=== PATIENT | male | born 1960 | race Caucasian/White ===

== ENCOUNTER 2024-09-16 16:52 | Inpatient (IN) | payer BC, SELFPAY ==
[2024-09-16] VITALS (10 sets, daily range): BP systolic 103–135; BP diastolic 52–74; BMI 29.7; BMI 29.4
[2024-09-16 14:30] LABS: % Basophils 0.2 % (0-2); % Eosinophils 0.5 % (0-6); % Immature Granulocytes 0.2 % (0-0.5); % Lymphocytes 10.3 % (20.5-51.1); % Monocytes 10.1 % (1.7-9.3); % Neutrophils 78.7 % (42.2-75.2); Absolute Lymphocytes 0.6 10^3/uL (1.2-3.4); Absolute Monocytes 0.6 10^3/uL (0.1-0.6); Absolute Neutrophils 4.5 10^3/uL (1.4-6.5); Hematocrit 23.8 % (39.0-52.0); Hemoglobin 7.4 g/dL (13.0-18.0); Mean Corp Hgb Conc. 31.1 g/dL (33.0-37.0); Mean Corpuscular Hgb 26.8 pg (27.0-31.0); Mean Corpuscular Volume 86.2 fL (80.0-94.0); Nucleated Red Blood Cells % 0 % (-); Platelet Count 232 10^3/uL (130-400); Red Blood Cell Count 2.76 10^6/uL (4.70-6.10); Red Cell Dist. Width 14.2 % (11.5-14.5); White Blood Cell Count 5.7 10^3/uL (4.8-10.8)
[2024-09-16 14:42] LABS: ALT (SGPT) 22 U/L (0-50); AST (SGOT) 20 U/L (17-59); Albumin 3.3 g/dl (3.5-5.0); Alkaline Phosphatase 51 U/L (38-126); Blood Urea Nitrogen 14 mg/dl (9-20); Calcium 8.5 mg/dl (8.4-10.2); Carbon Dioxide 25 mmol/L (22-30); Chloride 106 mmol/L (98-107); Glucose 129 mg/dl (70-99); Lipase 22 U/L (23-300); Sodium 137 mmol/L (135-145); Total Bilirubin 0.6 mg/dl (0.2-1.3); Total Protein 5.8 g/dl (6.3-8.2); eGFR > 60.00
--- NOTE | 2024-09-16 15:10 | ED.GENMED ---
History of Present Illness
General
Chief Complaint: Abdominal Symptoms
Source: patient
Exam Limitations: none
Time Seen by Provider: 09/16/24 14:50
History of Present Illness
History of Present Illness:
64yoM with a history of recently diagnosed ulcerative colitis and hyperlipidemia presenting with his daughter for evaluation of diarrhea and hematochezia. Patient had a colonoscopy 2 weeks ago at [facility] with Dr. Coughlin. Biopsies
reportedly came back consistent with ulcerative colitis. He is currently taking oral and rectal mesalamine although has not taken his rectal mesalamine in the last 2 days due to rectal discomfort. He reports frequent diarrhea, bloody and mucousy
stools, bloating, gas, and discomfort in his left lower abdomen. He had some chills last night but denies any fevers. No previous abdominal surgeries.
Past History
Past History
ED Past Medical History: None
ED Past Surgical History: None
Social History
Tobacco: Non-smoker
Phy Exam
General Physical Exam
General Presentation: well appearing and no apparent distress
General age: appears stated age
General Skin: warm, dry and pale
General Habitus: normal
General Mental: alert
ENT Exam
ENT Exam: normocephalic
Pulmonary Exam
Pulmonary Exam: no respiratory distress
Gastrointestinal Exam
Gastrointestinal Exam: soft, non distended and other (Mild tenderness in LLQ. Abdomen soft, non-distended. No rebound or guarding. )
Rectal Exam: hemorrhoids and other (External hemorrhoids noted. Stool bloody.)
Stool: red
Neurological Exam
Neurological Exam: alert
[place] Coma Scale
Eye Opening: Spontaneous
Verbal Response: Oriented
Motor Response: Obeys Commands
GCS Total Score: 15
Skin Exam
Skin Exam: normal color and warm/dry
Psychiatric Exam
Psychiatric Exam: normal mood/affect
Course
Orders/Labs/Results
Orders:
Orders
09/16/24 14:17
C-Reactive Protein Urgent
Comment: ADD ON
Complete Blood Count/With Diff Urgent
Comprehensive Metabolic Panel Urgent
Erythrocyte Sed Rate Urgent
Comment: ADD ON
Lipase Urgent
09/16/24 15:00
Add On- LAB Urgent
Tests Added?: ESR, CRP
CT Abd/pelvis W Iv Cont Urgent
Comment:
Reason For Exam: bloody diarrhea, LLQ pain, hx of UC
NPO
Allow oral meds: Yes
Allow clear liquids: Sips of Clears
09/16/24 15:18
Type+Screen Urgent
PT/INR [Prothrombin Time] Urgent
PTT Urgent
09/16/24 16:32
Acetaminophen [Tylenol] 650 mg PO NOW STA
09/16/24 16:38
Admit/Transfer Patient As Directed
Co-Sign Provider:
Level of Care: Inpatient admission
Assign to:: Medical/Surgical
Physician / Group: kiki
Diagnosis: ulcerative colitis flare
Reason for Hospitalization: ulcerative colitis flare
Expected length of stay greater than two midnights?: Yes
ELOS- Estimated Length of Stay in days: 2
I certify the patient meets the requirements for IP care: Yes
PRN Pain Medication Management As Directed
May give lesser potent ordered pain med per pt: Yes
preference::
Protocol:: Medication orders for pain may be administered in a
manner that supports deferring to patient preference
when the pt is:
- Requesting an ordered lesser potent pain medication.
Least to most potent pain medications are defined
as: acetaminophen < NSAID < tramadol < opioids
(morphine, oxycodone, hydromorphone).
- Requesting a lesser dose of the same medication IF
ORDERED.
- Requesting a less intrusive route of administration
if both routes are prescribed by the provider (PO <
IV).
09/16/24 16:39
Code Status As Directed
Resuscitation Status: Full Code
09/16/24 16:50
Stool Culture Urgent
REYNALDO Source: Feces/Stool
Specimen Description:
Date Specimen was Collected: 09/16/24
Time Specimen was Collected: 16:45
09/16/24 16:51
CDIFF [C difficile Antigen & Toxins] Urgent
REYNALDO Source: Feces/Stool
Specimen Description:
Date Specimen was Collected: 09/16/24
Time Specimen was Collected: 16:45
09/16/24 17:00
ABO2 Urgent
BBK Wristband Number:
Associate notified that ABO2 has been ordered: [id number]
Date: 09/16/24
Time: 15:32
Joggle Press Operator ID: [id number]
09/16/24 17:24
Acetaminophen [Tylenol] 650 mg PO Q4HPRN PRN
09/16/24 17:24
GASTROINTESTINAL CONSULT Routine
Consulting Provider: Esequiel Brown
Was physician already notified: Yes
Activity As Directed
Activity Level: As Tolerated
Pneumatic Compression Sleeves As Directed
Type: Knee high
Vital Signs As Directed
Frequency: Per unit guidelines
DX Deep Vein Thrombosis Video Routine
09/16/24 20:00
B12 [Vitamin B12] Routine
Folate Routine
Iron Routine
TIBC [Total Iron Binding] Routine
09/17/24 06:00
Complete Blood Count/With Diff IN AM
Comprehensive Metabolic Panel IN AM
Abnormal Lab Results
09/16/24 09/16/24
14:17 15:18
RBC 2.76 L 10^6/uL
(4.70-6.10)
Hgb 7.4 L g/dL
(13.0-18.0)
Hct 23.8 L %
(39.0-52.0)
MCH 26.8 L pg
(27.0-31.0)
MCHC 31.1 L g/dL
(33.0-37.0)
Absolute Lymphs (auto) 0.6 L 10^3/uL
(1.2-3.4)
Neutrophils % 78.7 H %
(42.2-75.2)
Lymphocytes % 10.3 L %
(20.5-51.1)
Monocytes % 10.1 H %
(1.7-9.3)
ESR 41 H mm/hour
(0-20)
PT 14.8 H Sec
(11.4-14.6)
Glucose 129 H mg/dl
(70-99)
C-Reactive Protein 138.10 H mg/L
(0.0-10.00)
Total Protein 5.8 L g/dl
(6.3-8.2)
Albumin 3.3 L g/dl
(3.5-5.0)
Lipase 22 L U/L
(23-300)
Crossmatch IS Only See Detail
09/16/24 14:17
09/16/24 14:17
Vital Signs
Initial and Last Documented VS:
Initial Vital Signs
Temp Pulse Resp BP Pulse Ox
98.6 F 82 16 123/68 98
09/16/24 14:10 09/16/24 14:10 09/16/24 14:10 09/16/24 14:10 09/16/24 14:10
Last Documented Vital Signs
Temp Pulse Resp BP Pulse Ox
99.8 F 72 18 105/67 97
09/16/24 20:51 09/16/24 20:51 09/16/24 20:51 09/16/24 20:51 09/16/24 15:00
MDM/Problems Addressed
Differential Diagnosis Includes:
64yoM here with bloody stool, diarrhea, rectal pain, bloating x 2 days. Recent diagnosis of UC. VSS. He is non-toxic appearing. Stool is bloody on rectal exam. Differential diagnosis includes but is not limited to: ulcerative colitis flare,
diverticulitis, colitis
Initial ED plan: Labs obtained in triage. Hemoglobin is 7.4, unclear baseline. Will check ESR/CRP, type and screen, stool studies, and CT abdomen.
*Critical Care Note
Total Time (30-74mins, 75-104mins- exclusive of procedures): Not Applicable
Update Note
Update Note:
ESR 41 and CRP 138. Discussed case with social media sr strategy manager Dr. Brown. GI recommending Solumedrol 20mg IV Q8 if C.diff testing and CT are negative. Patient admitted for further management.
ED Attending Note
-
Portions of this chart may have been created with voice recognition software.� Occasional wrong word or��sound alike� substitutions may have occurred due to the inherent limitations of voice recognition software.
Discharge Plan
Departure
Patient Disposition: Admit
Date of Disposition: 09/16/24
Time of Disposition: 16:27
Presentation/result/management discussed w/ accepting MD/DO: Hospitalist
Discharge Problem:
Exacerbation of ulcerative colitis, Anemia
Interventions
Interventions:
*Risk Screen - Suicide Last Done: 09/16/24 14:10
*General Assessment Last Done: 09/16/24 14:52
*Neglect/Abuse Screening Last Done: 09/16/24 14:10
*ED- Fall Risk Assessment Last Done: 09/16/24 14:52
*ED COVID-19 Vaccine History Last Done: 09/16/24 14:52
*Nursing Disposition Last Done: 09/16/24 19:00
HZ-Herqqt-Lteloezyyb Assessment Last Done: 09/16/24 14:52
Discharge Date and Time
Discharge Date/Time: 09/16/24 19:00
[2024-09-16 15:32] LABS: Erythrocyte Sed Rate 41 mm/hour (0-20)
[2024-09-16 15:42] LABS: INR 1.12; PT 14.8 Sec (11.4-14.6)
[2024-09-16 15:43] LABS: APTT 33.3 Sec (23.4-35.0)
[2024-09-16] MEDS: TYLENOL 650 MG PO ×2 (16:56→20:36)
--- NOTE | 2024-09-16 17:02 | HPS.HSE ---
Addendum entered and electronically signed by Lea Bee MD 09/16/24 17:49:
Continued mesalamine.
Original Note:
Family Physician
-
Family Physician: Timmy Fields
Chief Complaint
-
rectal bleeding
History of Present Illness
64-year-old male past medical history of ulcerative colitis diagnosed 2 weeks ago, hyperlipidemia, hypertension, prediabetes, presenting with diarrhea and blood in the stool.
Patient has been having diarrhea for the past several months. He saw GI and had a colonoscopy 2 weeks ago at [facility] with Dr. Coughlin. Biopsy reports came back consistent with ulcerative colitis. He is currently taking oral and rectal
mesalamine but is not taking his rectal mesalamine in the past 2 days due to rectal discomfort.
Over the past week while on vacation he developed nausea, abdominal discomfort and bloating, chills, fatigue and diarrhea with rectal bleeding and mucus. No vomiting.
His father had pancreatic cancer.
He denies smoking or alcohol use.
Medical History
Past Medical History
Past Medical History: Reports Other (ulcerative colitis diagnosed 2 weeks ago, hyperlipidemia, hypertension, prediabetes,)
Past Surgical History: Reports Tonsilectomy ( Tonsillectomy, right total hip replacement, L4-5 discectomy,)
Social History
Tobacco: Non-smoker
Alcohol: None
Drug: None
Family History
Family History: Not pertinent
Allergies / Home Medications
Allergies reflects when Allergies were last updated in [facility].
Home Medications with original date entered in [facility]
Allergy/Medication List:
Allergies
Allergy/AdvReac Type Severity Reaction Status Date / Time
[facility] Verified 09/16/24 14:09
to Review
penicillin V Allergy Unknown Verified 09/16/24 14:09
[facility] Verified 09/16/24 14:09
to Review
Home Medications
gabapentin 300 mg capsule 600 mg PO TID 02/12/16
ibuprofen 600 mg tablet 600 mg PO Q4H PRN pain 08/04/18
multivitamin (One Daily tablet) 1 ea PO DAILY 08/04/18
Review of Systems
-
History Source: Patient
A 12 point ROS was completed and negative except as noted: Yes
Constitutional: Reports No Symptoms
EENT: Reports No Symptoms
Respiratory: Reports No Symptoms
Cardiac: Reports No Symptoms
Abdomen/GI: Reports See HPI
: Reports No Symptoms
Musculoskeletal: Reports No Symptoms
Skin: Reports No Symptoms
Neurological: Reports No Symptoms
Endocrine: Reports No Symptoms
Hematologic/Lymphatic: Reports No Symptoms
Psych: Reports No Symptoms
Physical Exam
Vital Signs
Vital Signs
Temp Pulse Resp BP Pulse Ox
99.1 F 69 14 103/52 97
09/16/24 14:46 09/16/24 16:15 09/16/24 16:15 09/16/24 16:12 09/16/24 15:00
Physical Exam
General: Well Developed, Well Nourished and No Apparent Distress
HEENT: NormoCephalic, Moist mucous membranes and Atraumatic
Respiratory: Clear
Cardiac: S1/S2 and Regular Rhythm; No Murmur or Rub
GI: Soft, Non Tender, Non Distended and Normal Bowel Sounds; No Organomegaly
Rectal: Deferred by Provider
Musculoskeletal: No Clubbing, No Cyanosis and No Edema
Skin: No Rash
Neuro: Nonfocal/grossly intact
Laboratory Results
-
09/16/24 14:17
09/16/24 14:17
Laboratory Results
PT 14.8 Sec (11.4-14.6) H 09/16/24 15:18
INR 1.12 09/16/24 15:18
APTT 33.3 Sec (23.4-35.0) 09/16/24 15:18
Total Bilirubin 0.6 mg/dl (0.2-1.3) 09/16/24 14:17
AST 20 U/L (17-59) 09/16/24 14:17
ALT 22 U/L (0-50) 09/16/24 14:17
Alkaline Phosphatase 51 U/L (38-126) 09/16/24 14:17
Lipase 22 U/L (23-300) L 09/16/24 14:17
Data Reviewed
-
Lab Data: Labs Reviewed by me
Old Records: Reviewed
Impression/Plan
-
IMPRESSION:
PLAN:
# Ulcerative colitis flare
- CT scan abdomen pelvis pain
- Stool culture, C. difficile pending
-N.p.o.
-IV fluids
- If C. difficile negative and CT scan not suggestive of infection GI recommended to start Solu-Medrol 20 every 8
# Acute blood loss anemia
- Hemoglobin of 7.4, no recent for comparison
- Blood consent signed
-1 unit blood transfusion
- Check iron studies, B12 and folate
Hyperlipidemia
- Continue statin
Full code
DVT prophylaxis�SCDs
N.p.o.
[2024-09-16] MEDS: NSS IV (17:35)
--- NOTE | 2024-09-16 20:00 | PTCARENOTE ---
Pt brought to unit via stretcher from ED. Pt ambulated from stretcher to bed. A&Ox3. 1 Unit PRBCs transfusing. Pt oriented to unit. Care ongoing.
[2024-09-16] MEDS: NSS 1000 IV (20:57)
[2024-09-16] MEDS: PREPARATION H MAX STRENGTH PAIN RELIEF CREAM 1 APPLIC RECTAL (22:53)
[2024-09-16 23:02] LABS: Iron 21 ug/dl (49-181)
[2024-09-16 23:13] LABS: Percent Saturation 5 % (20-50); Total Iron Binding Capacity 388 ug/dl (261-462)
[2024-09-17 01:07] LABS: Folate 16.4 ng/ml (2.76-20)
[2024-09-17 02:08] LABS: Vitamin B12 332 pg/ml (239-931)
[2024-09-17 06:00] VITALS: BMI 29.4
--- NOTE | 2024-09-17 06:15 | CON.GI ---
Consultation
-
Date/Time Consultation Requested: 09/16/241723
Date/Time Consultation Performed: 09/17/24, 06
Requesting Provider: Dr. Lea Bee
Performing Provider: Dr. Esequiel Brown
Reason for Consultation: Bloody stools, Hx of UC, c/f UC Flare
Medical History
Chief Complaint / HPI
Chief Complaint: Rectal bleeding
History of Present Illness:
Mr. Alvarenga is a 64 y.o male with past medical history significant for HTN, HLD, prediabetes and recently diagnosed ulcerative colitis (two weeks ago, on 5-ASA) who presented to the ED with diarrhea and bloody stools. Found to have anemia with a
Hgb 7s and CT imaging revealing pancolitis concerning for UC flare. Gastroenterology has been consulted for further evaluation and management.
Patient states ongoing bloody stools over the past several months. Recently saw his Renewal Specialist, Dr. Buddy Amos (with [facility]), and underwent a colonoscopy about two weeks ago at [facility]. Unable to view prior report of this
but notes inflammation was found throughout his colon and biopsies were consistent with ulcerative colitis. He was started on oral mesalamine (4.8 grams q daily) along with rectal 5-ASA. Notes minimal relief with 5-ASA therapy and reports having 6-7
bloody stools along with rectal urgency, tenesmus, mucus along with ongoing bloody bowel movements. He was away traveling in [facility] and developed worsening abdominal discomfort along with nausea with worsening bloody stools. Once he got
back to the area he came to the ED for further evaluation. No other sick contacts, recent antibiotics or other new medications. No other fevers, chills, night sweats or other constitutional symptoms. Otherwise, he denies any prolonged steroids or
other biologic for his IBD given his new diagnosis. Denies any family hx of CRC or IBD, but notes his father had pancreatic cancer. Denies any other complications or EIM from his IBD.
In the ED, patient was afebrile and HD-stable. Labs notable for BUN 14 and Cell Installer 0.9. LFTs normal with albumin 3.3. Lipase 22. CBC revealed Hgb 7.4 (prev 13.2 back on 07/2018) with MCV 86.2 and WBC 5.7. Iron studies revealed low iron 21 and iron sat
5%. Borderline low vitamin B12 332 and folate 16.4. CRP elevated 138. CT Abd/pelvis 09/16 revealed moderate pancolitis without evidence of pneumatosis or perforation along with mild diverticulosis without diverticulitis without bowel obstruction.
Additionally, revealed avascular necrosis along superior margin of the L hip without apparent articular cortex collapse. Stool studies were ordered including C Diff and stool culture. Ordered 1 uPRBC and patient was kept NPO and given IVF and
admitted to medicine for further management.
Past Medical History
Past Medical History: Other (Ulcerative colitis diagnosed 2 weeks ago, hyperlipidemia, hypertension, prediabetes)
Past Surgical History: None
Social History
Tobacco: Non-Smoker
Alcohol: None
Drug: None
Family History
Family History: Reviewed & Not Pertinent
Allergies / Home Medications
Allergy/AdvReac Type Severity Reaction Status Date / Time
[facility] Verified 09/16/24 14:09
to Review
penicillin V Allergy Unknown Verified 09/16/24 14:09
[facility] Verified 09/16/24 14:09
to Review
�Medication �Instructions �Recorded
acetaminophen 500 mg tablet 500 mg PO DAILY Pain 09/16/24
atorvastatin 10 mg tablet 10 mg PO DAILY High Cholesterol 09/16/24
mesalamine 1,000 mg rectal 1 g DC HS Gastrointestinal Issue 09/16/24
suppository
mesalamine 1.2 gram tablet,delayed 1.2 g PO QID Gastrointestinal Issue 09/16/24
release
Review of Systems
-
All other systems: A 12 pt ROS was Negative except as stated above in HPI
Vital Signs
Temp Pulse Resp BP Pulse Ox
99.9 F 70 18 122/68 98
09/16/24 22:57 09/16/24 22:57 09/16/24 22:57 09/16/24 22:57 09/16/24 22:57
Physical Exam
Exam
General: Well Developed, Well Nourished, No Apparent Distress and Comfortable
HEENT: Normocephalic, Anicteric and Moist Mucous Membranes
Respiratory: Other (Normal WOB on room air)
GI: Soft, Non Tender and Non Distended
Skin: Warm and Dry
Neuro: AO x 3
Psych: Calm
Results
WBC 5.7 10^3/uL (4.8-10.8) 09/16/24 14:17
Hgb 7.4 g/dL (13.0-18.0) L 09/16/24 14:17
Hct 23.8 % (39.0-52.0) L 09/16/24 14:17
MCV 86.2 fL (80.0-94.0) 09/16/24 14:17
Plt Count 232 10^3/uL (130-400) 09/16/24 14:17
Absolute Neuts (auto) 4.5 10^3/uL (1.4-6.5) 09/16/24 14:17
PT 14.8 Sec (11.4-14.6) H 09/16/24 15:18
INR 1.12 09/16/24 15:18
APTT 33.3 Sec (23.4-35.0) 09/16/24 15:18
Sodium 137 mmol/L (135-145) 09/16/24 14:17
Potassium 4.0 mmol/L (3.5-5.1) 09/16/24 14:17
Chloride 106 mmol/L (98-107) 09/16/24 14:17
Carbon Dioxide 25 mmol/L (22-30) 09/16/24 14:17
BUN 14 mg/dl (9-20) 09/16/24 14:17
Creatinine 0.9 mg/dL (0.7-1.3) 09/16/24 14:17
Calcium 8.5 mg/dl (8.4-10.2) 09/16/24 14:17
Total Bilirubin 0.6 mg/dl (0.2-1.3) 09/16/24 14:17
AST 20 U/L (17-59) 09/16/24 14:17
ALT 22 U/L (0-50) 09/16/24 14:17
Alkaline Phosphatase 51 U/L (38-126) 09/16/24 14:17
Lipase 22 U/L (23-300) L 09/16/24 14:17
Diagnostic Image Results: As above
Prior GI Procedures: Unable to locate prior GI records
Assessment / Plan
-
Mr. Alvarenga is a 64 y.o male with past medical history significant for HTN, HLD, prediabetes and recently diagnosed ulcerative colitis (two weeks ago, on 5-ASA) who presented to the ED with diarrhea and bloody stools. Found to have anemia with a
Hgb 7s and CT imaging revealing pancolitis concerning for UC flare. Gastroenterology has been consulted for further evaluation and management.
#UC Flare
#Moderate UC Pancolitis CT Imaging
#Hx of Ulcerative Colitis (new diagnosis 2 weeks ago, on 5-ASA)
#Acute Blood Loss Anemia
#Iron Deficiency Anemia
#Avascular Necrosis on CT imaging of L Hip
Impression: Patient with recently diagnosed UC two weeks earlier and placed on 5-ASA about one week ago with ongoing symptoms and recent worsening bloody stools (6-7 per day) and lower abdominal discomfort consistent with UC flare in setting of
recently diagnosed ulcerative pancolitis. Previously on 5-ASA for about one week and denies any prior steroids or biologics given recent, new diagnosis. C Diff ruled out and doubt any other underlying infectious process. Would benefit from IV
steroids however he does have evidence of avascular necrosis on most recent CT imaging of the L Hip and denies any L hip or other symptoms. Unclear etiology as patient denies any chronic steroid use. Steroids would not be contraindicated in this
setting and would benefit from IV steroids to get his IBD under control. However, this needs to be taken under extreme consideration as steroids are known to cause avascular necrosis and may potentially worsen this.
C Diff (-)
Recommendations:
- Okay for low-fiber, low-residue diet
- Trend CRP q 48 hrs
- Trend Hgb with serial CBC, s/p 1 uPRBC on 09/16 with appropriate response
- Start IV iron while inpatient given iron sat 5%
- Follow-up rest of stool studies including stool culture
- Started on IV Solumedrol 20 mg q 8hrs (09/18- )given his UC flare
- Had a very long discussion with patient that IV steroids could potentially worsen his avascular necrosis of his L hip however he ultimately needs steroids given his UC flare to get control of his symptoms. Reviewed risks and benefits at length
this AM, patient demonstrated understanding and amenable for IV steroids this admission
- Would favor quicker taper as an outpatient with p.o Pred along with sooner need for a biologic given his moderate UC and failed 5-ASA therapy. Ultimately, defer this to his primary Renewal Specialist- Dr. Buddy Amos (with [facility])
- Stop 5-ASA given need for IV Steroids, would transition to p.o prednisone as an outpatient
- No plans for a flex-sig (ie to r/o CMV) given his recent colonoscopy with biopsies two weeks earlier
- Would consider a MRI of the L Hip as well along with Orthopedic surgery consultation as an outpatient given the concern for his avascular necrosis of his L hip. I also informed him to also discuss this with his primary Renewal Specialist as well
as this has implications for therapies in the future (ie steroid-limiting)
- Strict avoidance of all NSAIDs
- Ensure chemical VTE ppx given high risk for VTE given IBD hx
- Rest of care as per primary team
Discussed with both patient and primary internal medicine team this AM. GI will continue to follow.
Data Reviewed
-
Radiology: Image Personally Visualized and interpreted and Report Reviewed by me
CT Scan: Image Personally Visualized and interpreted and Report Reviewed by me
Old Records: Requested
-
-
Thank you for consultation and allowing me to participate in the patient's care. Please call the non acoustic operator GI physician during the after hours with any questions or concerns.
[2024-09-17] MEDS: TYLENOL 650 MG PO ×2 (06:40→22:22)
[2024-09-17 07:05] VITALS: BP 114/68
[2024-09-17 07:16] LABS: % Basophils 0.2 % (0-2); % Eosinophils 1.5 % (0-6); % Immature Granulocytes 0.3 % (0-0.5); % Lymphocytes 16.1 % (20.5-51.1); % Monocytes 13.7 % (1.7-9.3); % Neutrophils 68.2 % (42.2-75.2); Absolute Eosinophils 0.1 10^3/uL (0-0.7); Absolute Monocytes 0.8 10^3/uL (0.1-0.6); Absolute Neutrophils 4.2 10^3/uL (1.4-6.5); Hematocrit 26.9 % (39.0-52.0); Hemoglobin 8.3 g/dL (13.0-18.0); Mean Corp Hgb Conc. 30.9 g/dL (33.0-37.0); Mean Corpuscular Hgb 26.6 pg (27.0-31.0); Mean Corpuscular Volume 86.2 fL (80.0-94.0); Mean Platelet Volume 9.2 fL (7.4-10.4); Nucleated Red Blood Cells % 0 % (-); Platelet Count 251 10^3/uL (130-400); Red Blood Cell Count 3.12 10^6/uL (4.70-6.10); Red Cell Dist. Width 14.3 % (11.5-14.5); White Blood Cell Count 6.2 10^3/uL (4.8-10.8)
[2024-09-17 07:48] LABS: ALT (SGPT) 20 U/L (0-50); AST (SGOT) 19 U/L (17-59); Albumin 3.4 g/dl (3.5-5.0); Alkaline Phosphatase 55 U/L (38-126); Blood Urea Nitrogen 13 mg/dl (9-20); Calcium 8.4 mg/dl (8.4-10.2); Carbon Dioxide 24 mmol/L (22-30); Chloride 107 mmol/L (98-107); Estimated Creatinine Clearance 104 ml/min; Glucose 119 mg/dl (70-99); Potassium 3.9 mmol/L (3.5-5.1); Sodium 140 mmol/L (135-145); Total Bilirubin 0.7 mg/dl (0.2-1.3); Total Protein 6.1 g/dl (6.3-8.2); eGFR > 60.00
[2024-09-17 08:30] LABS: Hepatitis C Antibody Negative (Negative)
[2024-09-17] MEDS: NSS 1000 IV ×2 (09:04→22:22)
[2024-09-17] MEDS: LIPITOR 10 MG PO (09:04)
[2024-09-17] MEDS: TYLENOL 500 MG PO (09:04)
--- NOTE | 2024-09-17 10:18 | W.PN.HOSP.TC ---
Today's Communication/Plan
-
see A/P
Assessment / Plan
Assessment / Plan
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
Patient has been having diarrhea for the past several months. 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 with Dr. Coughlin. Biopsy reports came back consistent with ulcerative colitis. He is currently taking oral and rectal
mesalamine but is not taking his rectal mesalamine in the past 2 days due to rectal discomfort.
Over the past week while on vacation he developed nausea, abdominal discomfort and bloating, chills, fatigue and diarrhea with rectal bleeding and mucus. No vomiting.
His father had pancreatic cancer.
He denies smoking or alcohol use.
CT AP:
Moderate pancolitis. No evidence of pneumatosis. No perforation.
Mild diverticulosis without acute diverticulitis.
No bowel obstruction.
Left renal Bosniak 2F cyst. 6 month follow-up if there are no prior examinations for comparison.
A/P:
# Ulcerative colitis flare
Follow Stool culture,
C. difficile negative
IV Solu-Medrol 20 every 8 per GI , steroid per GI
# Incidental finding of L hip Avascular necrosis on CT AP
d/w GI wrt steroid with this finding, recc short course steroid
recc close follow up with ortho following discharge- pt informed
# Acute blood loss anemia
Hemoglobin improved from 7.4 to 8.3 following 1 unit PRBC
iron studies,
Low B12 level noted, started PO supplement
# Hyperlipidemia
Continue statin
Full code
DVT prophylaxis�SCDs
DW GI
Anticipated Discharge: 24 - 48 hours
Subjective/Interval History
-
Date of Service: September 17, 2024
Objective Data
-
Labs:
Laboratory Results
09/17/24
06:40
WBC 6.2
Hgb 8.3 L
Hct 26.9 L
Plt Count 251
Sodium 140
Potassium 3.9
Chloride 107
Carbon Dioxide 24
BUN 13
Creatinine 0.8
Glucose 119 H
Calcium 8.4
Total Bilirubin 0.7
AST 19
ALT 20
Alkaline Phosphatase 55
Vital Signs:
Vital Signs
Temp Pulse Resp BP Pulse Ox
37.5 C 68 18 114/68 97
09/17/24 07:05 09/17/24 07:05 09/17/24 07:05 09/17/24 07:05 09/17/24 07:05
I&O
09/16/24 09/17/24 09/18/24
06:59 06:59 06:59
Intake Total 250 / 250
Balance 250 / 250
Review of Systems
-
All other systems: Reviewed and negative
Physical Exam
-
General: Well Developed, Well Nourished, No Apparent Distress, Comfortable and Conversant; Negative Respiratory Distress
HEENT: Normocephalic, Atraumatic, Nose Appears Normal and Ears Appear Normal; Negative Oxygen
Respiratory: Clear to Auscultation and Non Labored Respirations; Negative Accessory Resp Muscle Use
Cardiac: Regular Rhythm and S1/S2
GI: Soft, Nontender, Nondistended and Normal Bowel Sounds
Skin: Warm and Dry
Neuro: Awake, Alert, Oriented, AO x 3 and Nonfocal/Grossly Intact
Psych: Calm and Intact Judgement/Insight
Data Reviewed
-
CT Scan: Report Reviewed by me, Discussed with Physician and Discussed with Patient
Labs: Labs Reviewed by me
[2024-09-17] MEDS: VITAMIN B-12 1000 MCG PO (11:36)
[2024-09-17] MEDS: SOLU-MEDROL PF 20 MG IV ×2 (11:36→21:00)
[2024-09-17] MEDS: FERRLECIT 110 MG IV (14:20)
[2024-09-17 15:05] VITALS: BP 127/65
[2024-09-17] MEDS: LOVENOX 40 MG SC (17:45)
[2024-09-17 23:00] VITALS: BP 118/60
[2024-09-18] MEDS: SOLU-MEDROL PF 20 MG IV ×3 (04:19→21:34)
--- NOTE | 2024-09-18 05:56 | W.PN.GI.CBS2 ---
Today's Communication / Plan
-
Continue IV steroids and improving symptoms, pending repeat CRP. Low-residue, low-fiber diet as tolerated. Consider transitioning to p.o steroids tomorrow if ongoing improving symptoms. See rest of care as outlined below.
Assessment / Plan
-
Mr. Alvarenga is a 64 y.o male with past medical history significant for HTN, HLD, prediabetes and recently diagnosed ulcerative colitis (two weeks ago, on 5-ASA) who presented to the ED with diarrhea and bloody stools. Found to have anemia with a
Hgb 7s and CT imaging revealing pancolitis concerning for UC flare. Gastroenterology has been consulted for further evaluation and management.
#UC Flare
#Moderate UC Pancolitis CT Imaging
#Hx of Ulcerative Colitis (new diagnosis 2 weeks ago, on 5-ASA)
#Acute Blood Loss Anemia
#Iron Deficiency Anemia
#Avascular Necrosis on CT imaging of L Hip
Impression: Patient with recently diagnosed UC two weeks earlier and placed on 5-ASA about one week ago with ongoing symptoms and recent worsening bloody stools (6-7 per day) and lower abdominal discomfort consistent with UC flare in setting of
recently diagnosed ulcerative pancolitis. Previously on 5-ASA for about one week and denies any prior steroids or biologics given recent, new diagnosis. C Diff ruled out and doubt any other underlying infectious process. Would benefit from IV
steroids however he does have evidence of avascular necrosis on most recent CT imaging of the L Hip and denies any L hip or other symptoms. Unclear etiology as patient denies any chronic steroid use. Steroids would not be contraindicated in this
setting and would benefit from IV steroids to get his IBD under control. However, this needs to be taken under extreme consideration as steroids are known to cause avascular necrosis and may potentially worsen this.
C Diff (-), pending stool culture
Recommendations:
- Okay for low-fiber, low-residue diet
- Trend CRP q 48 hrs, f/u AM labs
- Trend Hgb with serial CBC, s/p 1 uPRBC on 09/16 with appropriate response
- IV iron while inpatient given iron sat 5% for 5 days while inpatient
- Pending stool culture
- Continue IV Solumedrol 20 mg q 8hrs (09/17- )given his UC flare, will consider transitioning to oral prednisone tomorrow
- Again had a very long discussion with patient that IV steroids could potentially worsen his avascular necrosis of his L hip however he ultimately needs steroids given his UC flare to get control of his symptoms. Reviewed risks and benefits at
length again this AM, patient demonstrated understanding and amenable for IV steroids this admission
- Would favor quicker taper as an outpatient with p.o Pred along with sooner need for a biologic given his moderate UC and failed 5-ASA therapy. Ultimately, defer this to his primary Beauty Culturist- Dr. Buddy Amos (with [facility]) and has
follow-up with him this week on 09/20/24
- Stop 5-ASA given need for IV Steroids, would transition to p.o prednisone as an outpatient
- No plans for a flex-sig (ie to r/o CMV) given his recent colonoscopy with biopsies two weeks earlier
- Would consider a MRI of the L Hip as well along with Orthopedic surgery consultation as an outpatient given the concern for his avascular necrosis of his L hip. I also informed him to also discuss this with his primary Beauty Culturist as well
as this has implications for therapies in the future (ie steroid-limiting)
- Strict avoidance of all NSAIDs
- Ensure chemical VTE ppx given high risk for VTE given IBD hx
- Rest of care as per primary team
GI will continue to follow.
Subjective
Subjective
Date of Service: September 18, 2024
- Started on IV Solumedrol 20 mg q8 hrs (09/17- )
- CRP 138 from 09/16, pending AM labs
- Otherwise, no acute events overnight
Reports improving abdominal discomfort and having less bloody stools. Reports having 4-5 bloody BMs over the past 24 hours. No fevers or night sweats. Continues to deny any L hip pain or L hip discomfort, reviewed concern for steroids in setting of
L Hip AVN.
Objective
Data Reviewed
Laboratory Data:
Laboratory Results
PT 14.8 Sec (11.4-14.6) H 09/16/24 15:18
INR 1.12 09/16/24 15:18
APTT 33.3 Sec (23.4-35.0) 09/16/24 15:18
Total Bilirubin 0.7 mg/dl (0.2-1.3) 09/17/24 06:40
AST 19 U/L (17-59) 09/17/24 06:40
ALT 20 U/L (0-50) 09/17/24 06:40
Alkaline Phosphatase 55 U/L (38-126) 09/17/24 06:40
Lipase 22 U/L (23-300) L 09/16/24 14:17
Vital Signs and I&O:
Vital Signs
Temp Pulse Resp BP Pulse Ox
98.7 F 69 20 118/60 98
09/17/24 23:00 09/17/24 23:00 09/17/24 23:00 09/17/24 23:00 09/17/24 23:00
I&O
09/16/24 09/17/24 09/18/24
06:59 06:59 06:59
Intake Total 250 / 250 1440 / 1440
Balance 250 / 250 1440 / 1440
Physical Exam
Physical Exam
HEENT: Anicteric, No Lymphadenopathy and Other
Pulmonary: Other (Normal WOB on room air)
GI: Soft, Non Distended and Non Tender
Extremities: No Edema and Warm
Neuro: Non Focal
[2024-09-18 06:00] VITALS: BMI 29.2
[2024-09-18 07:05] VITALS: BP 109/71
[2024-09-18] MEDS: VITAMIN B-12 1000 MCG PO (07:28)
[2024-09-18] MEDS: TYLENOL 500 MG PO (07:28)
[2024-09-18] MEDS: LIPITOR 10 MG PO (07:28)
[2024-09-18 08:19] LABS: Hematocrit 23.7 % (39.0-52.0); Hemoglobin 7.5 g/dL (13.0-18.0); Mean Corp Hgb Conc. 31.6 g/dL (33.0-37.0); Mean Corpuscular Hgb 27.1 pg (27.0-31.0); Mean Corpuscular Volume 85.6 fL (80.0-94.0); Mean Platelet Volume 9.7 fL (7.4-10.4); Platelet Count 243 10^3/uL (130-400); Red Blood Cell Count 2.77 10^6/uL (4.70-6.10); Red Cell Dist. Width 14.1 % (11.5-14.5); White Blood Cell Count 5.7 10^3/uL (4.8-10.8)
[2024-09-18 09:05] LABS: Blood Urea Nitrogen 14 mg/dl (9-20); Calcium 8.2 mg/dl (8.4-10.2); Carbon Dioxide 23 mmol/L (22-30); Chloride 109 mmol/L (98-107); Estimated Creatinine Clearance 104 ml/min; Glucose 144 mg/dl (70-99); Potassium 4.3 mmol/L (3.5-5.1); Sodium 141 mmol/L (135-145); eGFR > 60.00
--- NOTE | 2024-09-18 11:26 | W.PN.HOSP.TC ---
Today's Communication/Plan
-
see A/P
Assessment / Plan
Assessment / Plan
HPI: 64-year-old male past medical history of ulcerative colitis diagnosed 2 weeks [employer], hyperlipidemia, hypertension, prediabetes, presented with diarrhea and blood in the stool.
Patient has been having diarrhea for the past several months. He saw GI and had a colonoscopy 2 weeks ago [employer] at [facility] with Dr. Coughlin. Biopsy reports came back consistent with ulcerative colitis. He is currently taking oral and rectal
mesalamine but is not taking his rectal mesalamine in the past 2 days due to rectal discomfort.
Over the past week while on vacation he developed nausea, abdominal discomfort and bloating, chills, fatigue and diarrhea with rectal bleeding and mucus. No vomiting.
His father had pancreatic cancer.
He denies smoking or alcohol use.
CT AP:
Moderate pancolitis. No evidence of pneumatosis. No perforation.
Mild diverticulosis without acute diverticulitis.
No bowel obstruction.
Left renal Bosniak 2F cyst. 6 month follow-up if there are no prior examinations for comparison.
A/P:
# Ulcerative colitis flare
C. difficile negative, Follow Stool culture
Started IV Solu-Medrol 20 every 8 per GI.
GI plan to transition to PO steroid, anticipating tmr if ongoing improving symptoms.
# Incidental finding of L hip Avascular necrosis on CT AP
d/w GI wrt steroid with this finding, recc short course steroid
recc close follow up with ortho following discharge- pt informed
# Acute blood loss anemia
Hemoglobin improved from 7.4 to 8.3 following 1 unit PRBC
Hgb dropped to 7.5 today, will transfuse second unit today
iron studies suggest iron def, started supplement
Low B12 level noted, started PO supplement
# Hyperlipidemia
Continue statin
Full code
DVT prophylaxis: Lovenox SQ
Anticipated Discharge: Within 24 hours
Subjective/Interval History
-
Date of Service: September 18, 2024
Objective Data
-
Labs:
Laboratory Results
09/18/24
07:28
WBC 5.7
Hgb 7.5 L
Hct 23.7 L
Plt Count 243
Sodium 141
Potassium 4.3
Chloride 109 H
Carbon Dioxide 23
BUN 14
Creatinine 0.8
Glucose 144 H
Calcium 8.2 L
Vital Signs:
Vital Signs
Temp Pulse Resp BP Pulse Ox
36.8 C 67 18 109/71 98
09/18/24 07:05 09/18/24 07:05 09/18/24 07:05 09/18/24 07:05 09/18/24 07:05
I&O
09/17/24 09/18/24 09/19/24
06:59 06:59 06:59
Intake Total 250 / 250 1440 / 1440
Balance 250 / 250 1440 / 1440
Review of Systems
-
All other systems: Reviewed and negative
Abdomen/GI: Reports Diarrhea (bloody BM)
Physical Exam
-
General: Well Developed, Well Nourished, No Apparent Distress, Comfortable and Conversant; Negative Respiratory Distress
HEENT: Normocephalic, Atraumatic, Nose Appears Normal and Ears Appear Normal; Negative Oxygen
Respiratory: Clear to Auscultation and Non Labored Respirations; Negative Accessory Resp Muscle Use
Cardiac: Regular Rhythm and S1/S2
GI: Soft, Nontender, Nondistended and Normal Bowel Sounds
Skin: Warm and Dry
Neuro: Awake, Alert, Oriented, AO x 3 and Nonfocal/Grossly Intact
Psych: Calm and Intact Judgement/Insight
Data Reviewed
-
CT Scan: Report Reviewed by me, Discussed with Physician and Discussed with Patient
Labs: Labs Reviewed by me
[2024-09-18 13:47] VITALS: BP 108/55
[2024-09-18 14:12] VITALS: BP 93/52
[2024-09-18 15:05] VITALS: BP 102/59
--- NOTE | 2024-09-18 15:13 | CM ---
Patient seen bedside.
IA completed.
Patient independent prior to admission, drives.
Patient lives in a 1 story condo with no steps.
No hx VN or skilled rehab.
PCP: Dr Fields
Pharmacy: [facility]
Plan: home no needs.
[2024-09-18] MEDS: FERRLECIT 110 MG IV (17:05)
[2024-09-18] MEDS: LOVENOX 40 MG SC (17:06)
[2024-09-18 17:15] VITALS: BP 111/63
[2024-09-18] MEDS: TYLENOL 650 MG PO (20:42)
[2024-09-18 23:15] VITALS: BP 94/53
[2024-09-18] MEDS: PERCOCET 5/325 1 TABLET PO (23:49)
[2024-09-19] MEDS: SOLU-MEDROL PF 20 MG IV (04:32)
--- NOTE | 2024-09-19 05:44 | W.PN.GI.CBS2 ---
Today's Communication / Plan
-
Transition to p.o Prednisone today and favor monitoring for 24 hrs given transition to oral steroids. If ongoing improvement, okay to d/c with very close outpatient f/u with his Director Of Blood. See rest of care as outlined below.
Assessment / Plan
-
Mr. Alvarenga is a 64 y.o male with past medical history significant for HTN, HLD, prediabetes and recently diagnosed ulcerative colitis (two weeks ago, on 5-ASA) who presented to the ED with diarrhea and bloody stools. Found to have anemia with a
Hgb 7s and CT imaging revealing pancolitis concerning for UC flare. Gastroenterology has been consulted for further evaluation and management.
#UC Flare
#Moderate UC Pancolitis CT Imaging
#Hx of Ulcerative Colitis (new diagnosis 2 weeks ago, on 5-ASA)
#Acute Blood Loss Anemia
#Iron Deficiency Anemia
#Avascular Necrosis on CT imaging of L Hip
Impression: Patient with recently diagnosed UC two weeks earlier and placed on 5-ASA about one week ago with ongoing symptoms and recent worsening bloody stools (6-7 per day) and lower abdominal discomfort consistent with UC flare in setting of
recently diagnosed ulcerative pancolitis. Previously on 5-ASA for about one week and denies any prior steroids or biologics given recent, new diagnosis. C Diff ruled out and doubt any other underlying infectious process. Would benefit from IV
steroids however he does have evidence of avascular necrosis on most recent CT imaging of the L Hip and denies any L hip or other symptoms. Unclear etiology as patient denies any chronic steroid use. Steroids would not be contraindicated in this
setting and would benefit from IV steroids to get his IBD under control. However, this needs to be taken under extreme consideration as steroids are known to cause avascular necrosis and may potentially worsen this.
C Diff (-), stool culture (-) E coli shiga toxin
Recommendations:
- Okay for low-fiber, low-residue diet
- CRP trending down 138 -> 119 -> CRP 52.20
- Trend Hgb with serial CBC, s/p 1 uPRBC on 09/16 with appropriate response
- IV iron while inpatient given iron sat 5% for 5 days while inpatient
- Switched to p.o Prednisone 40 mg once daily, defer ongoing taper to his primary Director Of Blood as patient has f/u tomorrow on 09/20/24. However, favor shorter taper given his L Hip AVN and expedited biologic as an outpatient but again to be
determined by his primary Director Of Blood
- We again had previous discussions that steroids could potentially worsen his avascular necrosis of his L hip however he ultimately needs steroids given his UC flare to get control of his symptoms. Reviewed risks and benefits at length again this
AM, patient demonstrated understanding and amenable for steroids this admission
- Would favor quicker taper as an outpatient with p.o Pred along with sooner need for a biologic given his moderate UC and failed 5-ASA therapy. Ultimately, defer this to his primary Director Of Blood- Dr. Buddy Amos (with [facility]) and has
follow-up with him this week on 09/20/24
- Stop 5-ASA given need for IV Steroids, would transition to p.o prednisone as an outpatient
- No plans for a flex-sig (ie to r/o CMV) given his recent colonoscopy with biopsies two weeks earlier and ongoing improvement with IV steroids
- Would consider a MRI of the L Hip as well along with Orthopedic surgery consultation as an outpatient given the concern for his avascular necrosis of his L hip. I also informed him to also discuss this with his primary Director Of Blood as well
as this has implications for therapies in the future (ie steroid-limiting)
- Strict avoidance of all NSAIDs
- Ensure chemical VTE ppx given high risk for VTE given IBD hx
- Rest of care as per primary team
Discussed with patient and primary internal medicine team this AM.
Subjective
Subjective
Date of Service: September 19, 2024
- Remains on IV Solumedrol
- CRP 138 -> 119 -> CRP 52.20
- Otherwise, no acute events overnight
Feeling well this morning, notes complete relief of his previous abdominal discomfort. Had 2 small, bloody BMs overnight / over past 24 hrs. Reports significant improvement in regards to his symptoms. No other fevers or chills.
Objective
Data Reviewed
Laboratory Data:
Laboratory Results
PT 14.8 Sec (11.4-14.6) H 09/16/24 15:18
INR 1.12 09/16/24 15:18
APTT 33.3 Sec (23.4-35.0) 09/16/24 15:18
Total Bilirubin 0.7 mg/dl (0.2-1.3) 09/17/24 06:40
AST 19 U/L (17-59) 09/17/24 06:40
ALT 20 U/L (0-50) 09/17/24 06:40
Alkaline Phosphatase 55 U/L (38-126) 09/17/24 06:40
Lipase 22 U/L (23-300) L 09/16/24 14:17
Vital Signs and I&O:
Vital Signs
Temp Pulse Resp BP Pulse Ox
98.6 F 54 16 94/53 99
09/18/24 23:15 09/18/24 23:15 09/18/24 23:15 09/18/24 23:15 09/18/24 23:15
I&O
09/17/24 09/18/24 09/19/24
06:59 06:59 06:59
Intake Total 250 / 250 1440 / 1440 2170 / 2170
Balance 250 / 250 1440 / 1440 2170 / 2170
Physical Exam
Physical Exam
HEENT: Anicteric and Moist mucous membranes
Pulmonary: Other (Normal WOB on room air)
GI: Soft, Non Distended and Non Tender
Extremities: Edema and No Edema
Neuro: Non Focal
[2024-09-19 06:00] VITALS: BMI 29.7
[2024-09-19 07:07] LABS: Hematocrit 25.2 % (39.0-52.0); Hemoglobin 7.9 g/dL (13.0-18.0); Mean Corp Hgb Conc. 31.3 g/dL (33.0-37.0); Mean Corpuscular Hgb 27.1 pg (27.0-31.0); Mean Corpuscular Volume 86.6 fL (80.0-94.0); Mean Platelet Volume 9.6 fL (7.4-10.4); Platelet Count 269 10^3/uL (130-400); Red Blood Cell Count 2.91 10^6/uL (4.70-6.10); White Blood Cell Count 8.9 10^3/uL (4.8-10.8)
[2024-09-19 07:25] LABS: Blood Urea Nitrogen 15 mg/dl (9-20); Calcium 8.4 mg/dl (8.4-10.2); Carbon Dioxide 25 mmol/L (22-30); Chloride 109 mmol/L (98-107); Estimated Creatinine Clearance 104 ml/min; Glucose 136 mg/dl (70-99); Potassium 4.6 mmol/L (3.5-5.1); Sodium 140 mmol/L (135-145); eGFR > 60.00
[2024-09-19 07:45] VITALS: BP 116/68
[2024-09-19] MEDS: TYLENOL 500 MG PO (08:34)
[2024-09-19] MEDS: VITAMIN B-12 1000 MCG PO (08:34)
[2024-09-19] MEDS: LIPITOR 10 MG PO (08:35)
[2024-09-19] MEDS: DELTASONE 40 MG PO (08:35)
--- NOTE | 2024-09-19 10:29 | W.PN.HOSP.TC ---
Today's Communication/Plan
-
see A/P
Assessment / Plan
Assessment / Plan
HPI: 64-year-old male past medical history of ulcerative colitis diagnosed 2 weeks [employer], hyperlipidemia, hypertension, prediabetes, presented with diarrhea and blood in the stool.
Patient has been having diarrhea for the past several months. He saw GI and had a colonoscopy 2 weeks ago [employer]ICAL TE[facility] at [facility] with Dr. Coughlin. Biopsy reports came back consistent with ulcerative colitis. He is currently taking oral and rectal
mesalamine but is not taking his rectal mesalamine in the past 2 days due to rectal discomfort.
Over the past week while on vacation he developed nausea, abdominal discomfort and bloating, chills, fatigue and diarrhea with rectal bleeding and mucus. No vomiting.
His father had pancreatic cancer.
He denies smoking or alcohol use.
CT AP:
Moderate pancolitis. No evidence of pneumatosis. No perforation.
Mild diverticulosis without acute diverticulitis.
No bowel obstruction.
Left renal Bosniak 2F cyst. 6 month follow-up if there are no prior examinations for comparison.
A/P:
# Ulcerative colitis flare
C. difficile negative, Stool culture negative
IV Solu-Medrol 20 every 8 per GI -> Prednisone 40 mg
CRP down trending, cont to monitor while on PO steroid
Appreciate GI input
# Incidental finding of L hip Avascular necrosis on CT AP
d/w GI wrt steroid with this finding, recc short course steroid
recc close follow up with ortho following discharge- pt informed
# Acute blood loss anemia 2/2 UC flare
s/p 2 units PRBC
Hemoglobin today at 7.9
iron studies suggest iron def, started supplement
Low B12 level noted, started PO supplement
# Hyperlipidemia
Continue statin
Full code
DVT prophylaxis: Lovenox SQ
DW GI
Anticipated Discharge: Within 24 hours
Subjective/Interval History
-
Date of Service: September 19, 2024
Objective Data
-
Labs:
Laboratory Results
09/19/24
06:33
WBC 8.9
Hgb 7.9 L
Hct 25.2 L
Plt Count 269
Sodium 140
Potassium 4.6
Chloride 109 H
Carbon Dioxide 25
BUN 15
Creatinine 0.8
Glucose 136 H
Calcium 8.4
Vital Signs:
Vital Signs
Temp Pulse Resp BP Pulse Ox
37.1 C 53 17 116/68 98
09/19/24 07:45 09/19/24 07:45 09/19/24 07:45 09/19/24 07:45 09/19/24 07:45
I&O
09/18/24 09/19/24 09/20/24
06:59 06:59 06:59
Intake Total 1440 / 1440 2170 / 2170
Balance 1440 / 1440 2170 / 2170
Review of Systems
-
All other systems: Reviewed and negative
Abdomen/GI: Reports Diarrhea (bloody BM has improved )
Physical Exam
-
General: Well Developed, Well Nourished, No Apparent Distress, Comfortable and Conversant; Negative Respiratory Distress
HEENT: Normocephalic, Atraumatic, Nose Appears Normal and Ears Appear Normal; Negative Oxygen
Respiratory: Clear to Auscultation and Non Labored Respirations; Negative Accessory Resp Muscle Use
Cardiac: Regular Rhythm and S1/S2
GI: Soft, Nontender, Nondistended and Normal Bowel Sounds
Skin: Warm and Dry
Neuro: Awake, Alert, Oriented, AO x 3 and Nonfocal/Grossly Intact
Psych: Calm and Intact Judgement/Insight
Data Reviewed
-
CT Scan: Report Reviewed by me, Discussed with Physician and Discussed with Patient
Labs: Labs Reviewed by me
[2024-09-19] MEDS: TYLENOL 650 MG PO ×3 (12:45→21:39)
[2024-09-19] MEDS: FERRLECIT 110 MG IV (14:51)
[2024-09-19 15:12] VITALS: BP 108/65
[2024-09-19] MEDS: LOVENOX 40 MG SC (17:36)
[2024-09-19 23:26] VITALS: BP 128/77
--- NOTE | 2024-09-20 05:49 | W.PN.GI.CBS2 ---
Today's Communication / Plan
-
Switched to p.o prednisone without any worsening UC symptoms and having 1-2 BMs. Tolerating diet without difficulty. Has f/u with his primary GI later this afternoon. Okay to d/c on oral Prednisone and ultimate taper can be decided as an outpatient.
Discussed importance of mentioning his L AVN seen on CT imaging as he would benefit from a MRI of his L hip and potentially an Orthopedic surgeon as well as outpatient. See rest of care as below. GI will s/off, please call back with any questions or
concerns.
Assessment / Plan
-
Mr. Alvarenga is a 64 y.o male with past medical history significant for HTN, HLD, prediabetes and recently diagnosed ulcerative colitis (two weeks ago, on 5-ASA) who presented to the ED with diarrhea and bloody stools. Found to have anemia with a
Hgb 7s and CT imaging revealing pancolitis concerning for UC flare. Gastroenterology has been consulted for further evaluation and management.
#UC Flare
#Moderate UC Pancolitis CT Imaging
#Hx of Ulcerative Colitis (new diagnosis 2 weeks ago, on 5-ASA)
#Acute Blood Loss Anemia
#Iron Deficiency Anemia
#Avascular Necrosis on CT imaging of L Hip
Impression: Patient with recently diagnosed UC two weeks earlier and placed on 5-ASA about one week ago with ongoing symptoms and recent worsening bloody stools (6-7 per day) and lower abdominal discomfort consistent with UC flare in setting of
recently diagnosed ulcerative pancolitis. Previously on 5-ASA for about one week and denies any prior steroids or biologics given recent, new diagnosis. C Diff ruled out and doubt any other underlying infectious process. Would benefit from IV
steroids however he does have evidence of avascular necrosis on most recent CT imaging of the L Hip and denies any L hip or other symptoms. Unclear etiology as patient denies any chronic steroid use. Steroids would not be contraindicated in this
setting and would benefit from IV steroids to get his IBD under control. However, this needs to be taken under extreme consideration as steroids are known to cause avascular necrosis and may potentially worsen this.
C Diff (-), stool culture (-) E coli shiga toxin
CRP 119 -> 52 -> 30s ; Transitioned to p.o steroids on 09/19
Recommendations:
- Okay for low-fiber, low-residue diet
- CRP trending down 138 -> 119 -> 52 -> 30s
- Trend Hgb with serial CBC, s/p 1 uPRBC on 09/16 with appropriate response
- IV iron while inpatient given iron sat 5% for 5 days while inpatient. Would discharge on oral iron
- May discharge on oral Prednisone 40 mg once daily
- Defer ongoing taper to his primary Load Dropper. Patient has f/u today on 09/20/24 later this afternoon. However, favor shorter taper given his L Hip AVN and expedited biologic as an outpatient but again to be determined by his primary
Load Dropper. Again, had previous discussions that steroids could potentially worsen his avascular necrosis of his L hip however he ultimately needs steroids given his UC flare to get control of his symptoms. Reviewed risks and benefits at
length again this AM, patient demonstrated understanding and amenable for steroids this admission. He plans on discussing this further with his primary GI
- Does not need to be restarted on 5-ASA, can be decided as outpatient and likely biologic. Again, ultimately defer to his primary GI
- No plans for a flex-sig (ie to r/o CMV) given his recent colonoscopy with biopsies two weeks earlier and ongoing improvement with steroids
- Would consider a MRI of the L Hip as well along with Orthopedic surgery consultation as an outpatient given the concern for his avascular necrosis of his L hip. I also informed him to also discuss this with his primary Load Dropper as well
as this has implications for therapies in the future (ie steroid-limiting)
- Strict avoidance of all NSAIDs
- Ensure chemical VTE ppx given high risk for VTE given IBD hx
- Rest of care as per primary team
Discussed with patient and primary internal medicine team this morning. Can be discharged from a GI standpoint today with close outpatient f/u.
GI team will s/off, please call back with any questions or concerns.
Subjective
Subjective
Date of Service: September 20, 2024
- CRP 119 -> 52 -> 30s
- Transitioned to p.o steroids on 09/19
- Otherwise, no acute events overnight
Feeling well, resting comfortably in bed. Tolerating solid diet without difficulty. Switched to oral prednisone yesterday and reports only 1-2 more formed stools, less blood. No other abdominal pain or nausea/vomiting. He has follow-up with his
primary Load Dropper later today around [address] findings again revealing AVN of his L hip.
Objective
Data Reviewed
Laboratory Data:
Laboratory Results
PT 14.8 Sec (11.4-14.6) H 09/16/24 15:18
INR 1.12 09/16/24 15:18
APTT 33.3 Sec (23.4-35.0) 09/16/24 15:18
Total Bilirubin 0.7 mg/dl (0.2-1.3) 09/17/24 06:40
AST 19 U/L (17-59) 09/17/24 06:40
ALT 20 U/L (0-50) 09/17/24 06:40
Alkaline Phosphatase 55 U/L (38-126) 09/17/24 06:40
Lipase 22 U/L (23-300) L 09/16/24 14:17
Vital Signs and I&O:
Vital Signs
Temp Pulse Resp BP Pulse Ox
98.3 F 54 18 128/77 96
09/19/24 23:26 09/19/24 23:26 09/19/24 23:26 09/19/24 23:26 09/19/24 23:26
I&O
09/18/24 09/19/24 09/20/24
06:59 06:59 06:59
Intake Total 1440 / 1440 2170 / 2170 186 / 1860
Balance 1440 / 1440 2170 / 2170 186 1859
Physical Exam
Physical Exam
HEENT: Anicteric and Moist mucous membranes
Pulmonary: Other (Normal WOB on room air)
GI: Soft, Non Distended and Non Tender
Extremities: No Edema and Warm
Neuro: Non Focal
[2024-09-20 06:27] LABS: Hemoglobin 8.1 g/dL (13.0-18.0); Mean Corp Hgb Conc. 31.2 g/dL (33.0-37.0); Mean Corpuscular Hgb 27.1 pg (27.0-31.0); Mean Platelet Volume 9.3 fL (7.4-10.4); Platelet Count 271 10^3/uL (130-400); Red Blood Cell Count 2.99 10^6/uL (4.70-6.10); Red Cell Dist. Width 14.1 % (11.5-14.5); White Blood Cell Count 10.9 10^3/uL (4.8-10.8)
[2024-09-20 06:53] LABS: Blood Urea Nitrogen 17 mg/dl (9-20); Calcium 8.4 mg/dl (8.4-10.2); Carbon Dioxide 24 mmol/L (22-30); Chloride 108 mmol/L (98-107); Estimated Creatinine Clearance 92 ml/min; Glucose 102 mg/dl (70-99); Potassium 4.1 mmol/L (3.5-5.1); Sodium 140 mmol/L (135-145); eGFR > 60.00
[2024-09-20 07:15] VITALS: BP 123/67
[2024-09-20] MEDS: LIPITOR 10 MG PO (07:45)
[2024-09-20] MEDS: VITAMIN B-12 1000 MCG PO (07:45)
[2024-09-20] MEDS: DELTASONE 40 MG PO (07:45)
[2024-09-20] MEDS: TYLENOL 500 MG PO (07:46)
--- NOTE | 2024-09-20 09:56 | W.PN.HOSP.TC ---
Addendum entered and electronically signed by Soheila Keating MD 09/20/24 14:04:
total DC time 38 min
Original Note:
Today's Communication/Plan
-
DC home today
Assessment / Plan
Assessment / Plan
HPI: 64-year-old male past medical history of ulcerative colitis diagnosed 2 weeks [employer], hyperlipidemia, hypertension, prediabetes, presented with diarrhea and blood in the stool.
Patient has been having diarrhea for the past several months. He saw GI and had a colonoscopy 2 weeks ago [employer] at [facility] with Dr. Coughlin. Biopsy reports came back consistent with ulcerative colitis. He is currently taking oral and rectal
mesalamine but is not taking his rectal mesalamine in the past 2 days due to rectal discomfort.
Over the past week while on vacation he developed nausea, abdominal discomfort and bloating, chills, fatigue and diarrhea with rectal bleeding and mucus. No vomiting.
His father had pancreatic cancer.
He denies smoking or alcohol use.
CT AP:
Moderate pancolitis. No evidence of pneumatosis. No perforation.
Mild diverticulosis without acute diverticulitis.
No bowel obstruction.
Left renal Bosniak 2F cyst. 6 month follow-up if there are no prior examinations for comparison.
A/P:
# Ulcerative colitis flare
C. difficile negative, Stool culture negative
IV Solu-Medrol 20mg Q8H -> Prednisone 40 mg to cont 7 days until further directed by your outpt GI doctor
CRP down trended,
Appreciate GI input
# Incidental finding of L hip Avascular necrosis on CT AP
d/w GI wrt steroid with this finding, recc short course steroid for UC flare instead of the usual prolonged course
recc close follow up with ortho following discharge- pt informed
# Acute blood loss anemia 2/2 UC flare
s/p 2 units PRBC
Hemoglobin today at 8.1
iron studies suggest iron def, started supplement
Low B12 level noted, started PO supplement
# Hyperlipidemia
Continue statin
Full code
DVT prophylaxis: Lovenox SQ
DW GI
Anticipated Discharge: Today
Subjective/Interval History
-
Date of Service: September 20, 2024
Objective Data
-
Labs:
Laboratory Results
09/20/24
05:30
WBC 10.9 H
Hgb 8.1 L
Hct 26.0 L
Plt Count 271
Sodium 140
Potassium 4.1
Chloride 108 H
Carbon Dioxide 24
BUN 17
Creatinine 0.9
Glucose 102 H
Calcium 8.4
Vital Signs:
Vital Signs
Temp Pulse Resp BP Pulse Ox
37.0 C 64 17 123/67 97
09/20/24 07:15 09/20/24 07:15 09/20/24 07:15 09/20/24 07:15 09/20/24 07:15
I&O
09/19/24 09/20/24 09/21/24
06:59 06:59 06:59
Intake Total 2170 / 2170 2340 / 2340
Balance 2170 / 2170 2340 / 2340
Review of Systems
-
All other systems: Reviewed and negative
Abdomen/GI: Reports Diarrhea (bloody BM has improved )
Physical Exam
-
General: Well Developed, Well Nourished, No Apparent Distress, Comfortable and Conversant; Negative Respiratory Distress
HEENT: Normocephalic, Atraumatic, Nose Appears Normal and Ears Appear Normal; Negative Oxygen
Respiratory: Clear to Auscultation and Non Labored Respirations; Negative Accessory Resp Muscle Use
Cardiac: Regular Rhythm and S1/S2
GI: Soft, Nontender, Nondistended and Normal Bowel Sounds
Skin: Warm and Dry
Neuro: Awake, Alert, Oriented, AO x 3 and Nonfocal/Grossly Intact
Psych: Calm and Intact Judgement/Insight
Data Reviewed
-
CT Scan: Report Reviewed by me, Discussed with Physician and Discussed with Patient
Labs: Labs Reviewed by me
--- NOTE | 2024-09-20 13:53 | W.DCSUMMARY ---
Discharge Summary
Discharge Data
Date of Admission: 09/16/24
Date of Discharge: 09/20/24
-
Pending Results: No
Hospital Course
Principal Diagnosis:
Ulcerative colitis (UC) flare with Acute blood loss anemia from GI/UC
Incidental finding of L hip Avascular necrosis on CT AP
Chronic Diagnoses:�
Hyperlipidemia
Hypertension
Prediabetes
Recent ulcerative colitis diagnosis 2 weeks prior to admission
Consultations:�
Gastroenterology
Procedures:�
None
Clinical course:�
This is a 64-year-old male with past medical history as stated above, who presented with bloody diarrhea.
Of note, he was diagnosed with ulcerative colitis 2 weeks prior to admission. He was started with mesalamine at that time.
Problem 1:
Ulcerative colitis flare.
His CT AP noted Moderate pancolitis, No evidence of pneumatosis, No perforation, No bowel obstruction.
His C. difficile and stool cultures were negative.
He received IV Solu-Medrol 20mg Q8H while in the hospital and this was changed to Prednisone 40 mg.
He can continue prednisone 40 mg daily for 7 more days until further directed by his outpatient GI doctor.
He was given a much shorter steroid course due to the incidental finding of left hip avascular necrosis on CT scan (see below).
Problem 2:
Acute blood loss anemia 2/2 UC flare.
He received 2 units PRBC this admission. His hemoglobin on the day of discharge was at 8.1.
His iron studies suggest iron deficiency, and he received IV iron while in the hospital. He can continue with oral iron supplementation going forward.
B12 level was checked which was also noted to be low (332), and he can continue with B12 supplementation going forward too.
Problem 3:
Incidental finding of L hip Avascular necrosis on CT AP.
He has been informed to follow-up with orthopedic outpatient for this.
As for the rest of his medical problems, they were stable during his hospital stay.
Discharge Plan
-
Patient Disposition: Home (Routine Discharge)
Discharge Diagnosis/Procedures: Ulcerative colitis (UC) flare;
Acute blood loss anemia due to UC flare;
Iron deficiency anemia and low B12 level;
Incidental finding of L hip Avascular necrosis on CT;
Condition: Good
Diet: As tolerated
Activity: As tolerated
Driving Restrictions: As prior to admission
Activity Restrictions/Additional Instructions:
Follow up with your orthopedic doctor for finding of L hip avascular necrosis
Referrals:
Timmy Fields MD [Family Provider] - in less than 1 week
Additional Discharge Medication Instructions: Continue Prednisone 40 mg daily for 7 days until further directed by your outpatient GI doctor
Continue iron and B12 supplementation
Mesalamine was stopped this admission (probably was not helping, defer to primary GI doctor)
Prescriptions:
New
prednisone 20 mg Tablet
40 mg PO DAILY Qty: 7 0RF
ferrous sulfate [FeroSul] 325 mg (65 mg iron) Tablet
325 mg PO DAILY Qty: 30 0RF
cyanocobalamin (vitamin B-12) [Vitamin B-12] 1,000 mcg Tablet
1,000 mcg PO DAILY Qty: 30 0RF
Continued
atorvastatin 10 mg Tablet
10 mg PO DAILY
acetaminophen 500 mg Tablet
500 mg PO DAILY
Discontinued
mesalamine 1,000 mg Suppository
1 g DE HS
mesalamine 1.2 gram Tablet,Delayed Release (Dr/Ec)
1.2 g PO QID
Discharge Orders:
Discharge Patient (As Directed); Ordered 09/20/24
Ordered By: Soheila Keating
Discharge Date and Time
Discharge Date/Time: 09/20/24 11:14
Print Language: NICARAGU[place]
== END 2024-09-20 11:14 | disposition home or self-care (01) | DRG 386 ==
LOC: 3 WEST ACU 16:52
PROVIDERS: Emergency Medicine; Physician Assistant; ADMITTING PHYSICIAN Hospitalist; ATTENDING PHYSICIAN Internal Medicine; CONSULT PHYSICIAN Student in an Organized Health Care Education/Training Program; EMERGENCY PHYSICIAN Emergency Medicine; FAMILY PHYSICIAN Internal Medicine
PROC: 30233N1 Transfusion of Nonautologous Red Blood Cells into Peripheral Vein, Percutaneous Approach (ICD-10-PCS; 2024-09-16)
DX: K51.011 Ulcerative (chronic) pancolitis with rectal bleeding (principal); D62 Acute posthemorrhagic anemia; M87.9 Osteonecrosis, unspecified; I10 Essential (primary) hypertension; R73.03 Prediabetes; D50.9 Iron deficiency anemia, unspecified; E78.00 Pure hypercholesterolemia, unspecified; Z80.0 Family history of malignant neoplasm of digestive organs; Z96.641 Presence of right artificial hip joint; Z88.0 Allergy status to penicillin; Z91.018 Allergy to other foods; K64.4 Residual hemorrhoidal skin tags
CPT/HCPCS: 36430; 74177; 80048; 80053; 82607; 82728; 82746; 83540; 83550; 83690; 85025; 85027; 85610; 85652; 85730; 86140; 86803; 86850; 86900; 86901; 86920; 87045; 87046; 87324; 87427; 87449; 99285; J2916; P9016; Q9967